=== PATIENT | female | born 1965 | race Caucasian/White ===

== ENCOUNTER → 2021-02-23 | Outpatient (CLI) | payer BC | LOC: MAMO 10:27 | DX: Z12.31 Encounter for screening mammogram for malignant neoplasm of breast (principal) | CPT/HCPCS: 77063; 77067 ==

== ENCOUNTER → 2021-04-23 | Outpatient (CLI) | payer BC | LOC: HEART 5 16:27 | DX: I20.9 Angina pectoris, unspecified (principal); R06.02 Shortness of breath; I08.1 Rheumatic disorders of both mitral and tricuspid valves | CPT/HCPCS: 93306 ==

== ENCOUNTER → 2021-04-26 | Outpatient (CLI) | payer BC | LOC: HEART 5 10:33 | DX: I20.9 Angina pectoris, unspecified (principal); R06.02 Shortness of breath; I47.1 Supraventricular tachycardia; J43.9 Emphysema, unspecified | CPT/HCPCS: 71046 ==

== ENCOUNTER → 2021-06-22 | Outpatient (CLI) | payer BC | LOC: MRI 09:01 | DX: R14.0 Abdominal distension (gaseous) (principal); R10.9 Unspecified abdominal pain; K86.2 Cyst of pancreas | CPT/HCPCS: 74183; A9577 ==

== ENCOUNTER 2021-09-28 13:48 | Emergency (ER) | payer BC | END 2021-09-28 15:58 | disposition home or self-care (01) | LOC: ER1 13:48 | DX: M79.662 Pain in left lower leg (principal); Z88.1 Allergy status to other antibiotic agents; Z88.5 Allergy status to narcotic agent | CPT/HCPCS: 93971; 99283 ==

== ENCOUNTER → 2022-02-28 | Outpatient (CLI) | payer BC | LOC: CT 07:15 | DX: R10.84 Generalized abdominal pain (principal) | CPT/HCPCS: Q9967 ==

== ENCOUNTER → 2022-03-26 | Outpatient (CLI) | payer BC | LOC: MAMO 09:00 | DX: Z12.31 Encounter for screening mammogram for malignant neoplasm of breast (principal) | CPT/HCPCS: 77063; 77067 ==